=== PATIENT | female | born 1945 | race Caucasian/White ===

== ENCOUNTER 2019-01-04 19:31 | Inpatient (IN) | payer MEDICARE ==
[~2019-01-04] VITALS: Ht 152.4 cm; Wt 44.9 kg
[2019-01-04 19:31] VITALS: BP 130/53
--- NOTE | 2019-01-04 19:31 | NUR ---
Respiratory Therapist at bedside for respiratory intervention.
--- NOTE | 2019-01-04 19:31 | NUR ---
PT ANGELICA ALS. TAKEN TO BED 10
[2019-01-04] MEDS ORDERED: NACL 0.9% 1,000 ML IV ONE (19:32)
--- NOTE | 2019-01-04 19:40 | NUR ---
73 Y/O FEMALE BIBA C/O DIFFICULTY BREATHING. PT PRESENTS WITH ACCESSORY MUSCLE USE, DEEP,LABORED BREATHS, TRIPODDING. PT PLACED ON 3L NC. PT APPEARS FATIGUE. MUMBLING WHEN ASKED QUESTIONS. PT AROUSABLE TO NAME. AO TO NAME AND LOCATION. DIMINISHED BREATH SOUNDS THROUGHOUT. WET COUGH PRESENT AT THIS TIME. PT POSITIONED IN BED FOR COMFORT. PT PLACED ON MONITOR AND O2 SAT. VSS AT THIS TIME. MEDHX: COPD
--- NOTE | 2019-01-04 19:54 | NUR ---
PT PLACED ON BIPAP AT THIS TIME BY RESPIRATORY THERAPIST.
[2019-01-04 19:59] LABS: HEMATOCRIT 41.3 % (36-48); HEMOGLOBIN 13.6 g/dL (12.0-16.0); MEAN CORPUSCULAR HEMOGLOBIN 29 pg (27-31); MEAN CORPUSCULAR HGB CONC 33 g/dL (33-37); MEAN CORPUSCULAR VOLUME 88.4 fL (80-94); PLATELET COUNT (AUTO) 606 K/uL (140-450); RED BLOOD CELL COUNT(AUTO) 4.67 MIL/uL (4.20-5.40); RED CELL DISTRIBUTION WIDTH 13.3 % (11.6-13.7); WHITE BLOOD COUNT (AUTO) 18.1 K/uL (4.8-10.8)
[2019-01-04] MEDS ORDERED: methylPREDNISolone SS 125 MG in WATER STERILE 2 ML IV ONE (20:10)
--- NOTE | 2019-01-04 20:15 | NUR ---
PT PLACED ON BED JARRETT, URINE COLLECTED AT THIS TIME.
[2019-01-04 20:16] LABS: PROTHROMBIN TIME 9.8 secs (10.8-13.4)
[2019-01-04 20:26] LABS: BASOPHILS % (MANUAL) 0 % (0-2); EOSINOPHILS % (MANUAL) 0 % (0-4); LYMPHOCYTES % (MANUAL) 5 % (20-46); MONOCYTES % (MANUAL) 5 % (5-12)
[2019-01-04 20:39] LABS: APPEARANCE,URINE CLEAR (CLEAR); BILIRUBIN,URINE 1+ (NEGATIVE); BLOOD, URINE TRACE-I (NEGATIVE); COLOR,URINE YELLOW (YELLOW); LEUKOCYTE ESTERASE ,URINE NEGATIVE (NEGATIVE); NITRITE, URINE NEGATIVE (NEGATIVE); UGLUCOSE NEGATIVE (NEGATIVE)
[2019-01-04 20:44] LABS: CHLORIDE 100 mmol/L (98-107); POTASSIUM 4.1 mmol/L (3.5-5.1); SODIUM SERUM 144 mmol/L (136-145)
[2019-01-04 20:45] LABS: ALBUMIN 3.4 g/dL (3.4-5.0); ANION GAP 11.7 (8-16); ASPARTATE AMINOTRANSFERASE 30 U/L (15-37); CARBON DIOXIDE 36.4 mmol/L (21-32); CREATININE 0.7 mg/dL (0.6-1.3); GLUCOSE 200 mg/dL (74-106); LIPASE 59 U/L (73-393); TOTAL BILIRUBIN 0.6 mg/dL (0.0-1.0); UREA NITROGEN, BLOOD 34 mg/dL (7-18)
[2019-01-04] MEDS ORDERED: LEVOFLOXACIN 500 MG/D5W PREMIX 100 ML IV ONE (20:45)
[2019-01-04] MEDS ORDERED: ALBUTEROL SULFATE/IPRATROPIU 3 ML SOL IH ONE (20:55)
[2019-01-04 20:59] LABS: RBC,URINE NONE SEEN /HPF (0-5); WBC,URINE 0-5 /HPF (0-5)
--- NOTE | 2019-01-04 21:11 | NUR ---
PT AWAKE AND ALERT AT THIS TIME. PT APPEARS TO BE LESS LETHARGIC. RR EVEN, AND LESS LABORED. NO ACCESSORY MUSCLE USE. VSS. WILL CONTINUE TO MONITOR.
[2019-01-04 21:23] LABS: BARBITURATE, URINE NEGATIVE ng/ml (NEG <=200); BENZODIAZEPINE, URINE NEGATIVE ng/mL (NEG <=200); CANNABINOID, URINE NEGATIVE ng/mL (NEG <=50); COCAINE, URINE NEGATIVE ng/mL (NEG <=300); OPIATE, URINE NEGATIVE ng/mL (NEG <=2000); PHENCYCLIDINE SCREEN,URINE NEGATIVE ng/mL (NEG <=25)
--- NOTE | 2019-01-04 21:42 | NUR ---
RESPIRATORY AT BEDSIDE. PT AWAKE AND ALERT. VSS. WILL CONTINUE TO MONITOR.
--- NOTE | 2019-01-04 22:17 | NUR ---
POST ABG. INCREASED RR TO 16 AND 02 TO 40%
[2019-01-04] MEDS ORDERED: fentaNYL 0.05 MG/ML VIAL IVP ONE (22:50)
--- NOTE | 2019-01-04 22:53 | NUR ---
FLU SWAP COLLECTED AND TAKEN TO LAB
[2019-01-04 23:00] VITALS: BP 134/62
--- NOTE | 2019-01-04 23:00 | NUR ---
PT ARRIVED VIA GURNEY AND WAS TRANSFERRED TO ROOM 107A. LINDSAY NUNEZ ER NURSE GAVE REPORT AT BEDSIDE. PT AWAKE AND IN TRIPOD POSITION WITH BIPAP ON. FIO2 AT 40% PT RR 16 WITH BIPAP MASK ON. IV SITE 20G ON LEFT AC PLACED BY PARAMEDICS. SHE SKIN INTACT EXCEPT SOME MINOR [place] REDNESS. PT IS ALERT BUT HAS SOME CONFUSION. PER FAMILY PT RECENTLY LOST A LOT OF WEIGHT AND IS NON COMPLIANT WITH HOME MEDS. FAMILY TO ASSIST WITH MEDICAL HISTORY. PT DENIES PAIN AT THIS TIME.
--- NOTE | 2019-01-04 23:01 | NUR ---
PT SITTING IN BED POSITIONED FOR COMFORTABLE BREATHING. PT DENIES PAIN AT THIS TIME. REMAINS ON BIPAP. VSS.
[2019-01-04] MEDS: NACL 0.9% 1,000 ML IV SCH (23:06)
[2019-01-04] MEDS ORDERED: HYDROcodone/APAP 7.5/325 MG 1 TAB PO PRN (23:10)
[2019-01-04] MEDS ORDERED: DOCUSATE SODIUM 100 MG GELCAP PO PRN (23:10)
[2019-01-04] MEDS ORDERED: ACETAMINOPHEN 325 MG TAB PO PRN (23:10)
[2019-01-04] MEDS ORDERED: ONDANSETRON 4 MG/2 ML VIAL IM/IVP PRN (23:10)
[2019-01-04] MEDS ORDERED: MORPHINE SULFATE 2 MG/ML SYR IVP PRN (23:10)
[2019-01-04] MEDS ORDERED: FLUO10CA21 PO (23:22)
[2019-01-04] MEDS ORDERED: LISI30TA6 PO (23:22)
[2019-01-04] MEDS ORDERED: ATOR40TA PO (23:22)
[2019-01-04] MEDS ORDERED: AMLO5TAB PO (23:22)
[2019-01-04] MEDS ORDERED: ATEN50TA8 PO (23:22)
--- NOTE | 2019-01-04 23:48 | NUR ---
Patient will be admitted to care of DR TEAGUE. Admited to TELE. Will go to room 107A. Belongings list completed. Report to ENRIQUE ALBERTO.
--- NOTE | 2019-01-05 00:02 | NUR ---
PT TRANSFERRED FROM ER BED 10 TO RM 107A ON BIPAP 11/14,16,40%. PT WAS IN NO DISTRESS SAT 97%. BIPAP PLUGGED INTO RED OUTLET.
[2019-01-05] MEDS ORDERED: ALBUTEROL SULFATE/IPRATROPIU 3 ML SOL IH PRN (00:10)
[2019-01-05] MEDS ORDERED: DEXTROSE 50% 50 ML SYR IVP PRN (00:20)
[2019-01-05 02:21] LABS: MAGNESIUM 2.1 mg/dL (1.8-2.4); PHOSPHORUS 3.5 mg/dL (2.5-4.9); THYROID STIMULATING HORMONE 0.3 uIU/mL (0.34-3.74)
[2019-01-05 04:00] VITALS: BP 129/46
--- NOTE | 2019-01-05 04:00 | NUR ---
PT IN BED WITH BIPAP ON, SHE DENIES PAIN, IV SITE INTACT AND PT RUNNING N/S AT 100MLS/HR. V/S FOLLOWS T 97 P 80 R 18 B/P 129/46 02 98% ON BIPAP MACHINE. ALL FALLS PROTOCOL IN PLACE AT THIS TIME.
[2019-01-05] MEDS: ALBUTEROL SULFATE/IPRATROPIU 3 ML SOL IH SCH ×3 (06:28→19:34)
--- NOTE | 2019-01-05 06:28 | NUR ---
REC'D PT ON SHAILA V60 BIPAP SETTINGS 10/5 RR16 FIO2 40 % ALARM ON AND AUDIBLE AND AMBU BAG AT SIDE OF BIPAP AND BIPAP IS PLUGGED INTO RED OUTLET, I\L TX GIVEN WITH DUONEB 3ML WITH NO ADVERSE REACTION POST TX B\S ARE DIMINISHED BILATERALLY, PT IS SITTING UP IN BED AND PT IS WEARING MED FACE MASK.
[2019-01-05] MEDS: BLOOD GLUCOSE MONITORING 1 DEV DEV FS SCH ×4 (06:37→21:14)
[2019-01-05] MEDS: Z-GUARD PASTE TP SCH ×2 (06:38→20:24)
--- NOTE | 2019-01-05 06:38 | NUR ---
PER RT PLEASE DON'T TAKE MASK OF PT FRO BREAKFAST, PT DESTATS QUICKLY WHEN MASK IS OFF.
--- NOTE | 2019-01-05 06:39 | NUR ---
FINGERSTICK IS 177 NO COVERAGE GIVEN DUE TO PT NOT BEING ABLE TO EAT BREAKFAST (SHE DESTATS TOO QUICK WHEN MASK IS OFF PER RT)
[2019-01-05] MEDS ORDERED: methylPREDNISolone SS 40 MG/ML VIAL IVP SCH (07:00)
--- NOTE | 2019-01-05 07:10 | NUR ---
RECEIVED REPORT FROM NIGHT NURSE. PATIENT IS ALERT AND ORIENTED X4. ABLE TO MAKE NEEDS KNOWN. IV INTACT AND PATENT TO LEFT IJ WITH IVF NS INFUSING AT 100ML/HR. NO S/S OF DISTRESS NOTED. Addendum: 01/05/19 at 0812 by Lena Champagne RN DISREGARD NOTE ABOVE. ERROR. NOTE FOR A DIFFERENT PATIENT.
[2019-01-05 07:15] LABS: HEMATOCRIT 38.7 % (36-48); HEMOGLOBIN 12.4 g/dL (12.0-16.0); MEAN CORPUSCULAR HEMOGLOBIN 29 pg (27-31); MEAN CORPUSCULAR HGB CONC 32 g/dL (33-37); MEAN CORPUSCULAR VOLUME 89.4 fL (80-94); PLATELET COUNT (AUTO) 539 K/uL (140-450); RED BLOOD CELL COUNT(AUTO) 4.33 MIL/uL (4.20-5.40); RED CELL DISTRIBUTION WIDTH 13.6 % (11.6-13.7)
--- NOTE | 2019-01-05 07:30 | NUR ---
RECEIVED REPORT FROM NIGHT NURSE. PATIENT IS ON BIPAP MACHINE. O2 SAT AT 99%. AWAKE, VERBALLY RESPONSIVE AND SITTING UP IN A TRIPOD POSITION. IV INTACT AND PATENT TO LEFT AC WITH IVF NS INFUSING AT 100ML/HR. TOLERATING WELL. BED ALARM ON, BED IN LOW POSITION.
[2019-01-05 08:00] VITALS: BP 138/87
--- NOTE | 2019-01-05 08:00 | NUR ---
NOTIFIED DR. PIRES IN REGARDS TO PATIENT UNABLE TO EAT DUE TO BIPAP MASK REQUIRING TO STAY ON AT ALL TIMES. WILL REVIEW ORDERS.
--- NOTE | 2019-01-05 08:23 | NUR ---
PATIENT HAS BEEN SCREENED AND CATEGORIZED HIGH NUTRITION RISK. PATIENT WILL BE SEEN WITHIN 1-2 DAYS OF ADMISSION. 01/05/19-01/06/[address]
[2019-01-05 08:33] LABS: PHOSPHORUS 3.1 mg/dL (2.5-4.9)
--- NOTE | 2019-01-05 08:47 | NUR ---
ABG ATTEMPTED TWICE PT IS COMBATIVE AND TRYING TO GET OUT OF BED ENRIQUE CRANE NOTIFIED
[2019-01-05 08:51] LABS: EOSINOPHILS % (MANUAL) 1 % (0-4); LYMPHOCYTES % (MANUAL) 8 % (20-46); MONOCYTES % (MANUAL) 9 % (5-12)
--- NOTE | 2019-01-05 09:00 | NUR ---
PATIENT IS SITTING IN A TRIPOD POSITION WITH BIPAP MASK ON, OBSERVED IV CANNULA PULLED OUT. NO IV ACCESS AT THIS TIME. WILL RE INSERT IV.
[2019-01-05] MEDS: LACTOBACILLUS RHAMNOSUS GG 1 EACH CAP PO SCH (09:04)
[2019-01-05] MEDS: FLUoxetine 10 MG CAP PO SCH (09:05)
[2019-01-05] MEDS: ATENOLOL 50 MG TAB PO SCH (09:05)
[2019-01-05] MEDS: LISINOPRIL 20 MG TAB PO SCH (09:05)
[2019-01-05] MEDS: amLODIPine 5 MG TAB PO SCH (09:06)
[2019-01-05] MEDS: NACL 0.9% 1,000 ML IV SCH (09:06)
--- NOTE | 2019-01-05 09:25 | NUR ---
DC PLANNING: CONTACTED [place] AT [phone], ABLE TO SPEAK TO [employer] SALES REPRESENTATIVE. SHE STATED THE JUNIOR STAFF ACCOUNTANT IN CHARGE IS [employer]OL AND JOEL IS THE TRAIN ATTENDANT. SHE PROVIDED ME JOEL'S PHONE NUMBER [phone] BEFORE TRANSFERRING ME. SPOKE TO JOEL, SHE STATED TO GO AHEAD AND FAX [phone] OVER CLINICALS AND PROGRESS NOTES FOR TODAY'S STAY. WRINGER AND SETTER LILA MADE AWARE. Addendum: 01/05/19 at 1532 by Jessica Ellison 73 YO FEMALE PATIENT FROM HOME, WHO CAME IN DUE TO SOB. PST MEDICAL HISTORY INCLUDE COPD, HTN, DIABETES, ANXIETY AND DEPRESSION. INITIAL DIAGNOSIS OF COPD EXACERBATION. WBC ON ADMISSION 18.1, TODAY 15.0. ON LEVOFLOXACIN AND SOLU MEDROL IV. BLOOD AND URINE CULTURES ARE STILL PENDING. CXR SHOWED HYPEREXPANDED LUNGS WHICH COULD REFELECT UNDERLYING OBSTRUCTIVE LUNG DISEASE. MILD VASCULAR CONGESTION. PULMO CONSULT WITH KANE FOR COPD. PO2 59.4 ON ABG. ON BIPAP 40% FIO2, O2 SAT 95%. DC PLAN PENDING ON PATIENT'S RESPONSE TO TREATMENT. Addendum: 01/06/19 at 0832 by Jessica Ellison CM CONTACTED [facility], ABLE TO SPEAK TO KELL MORAN. INFORMED HER THAT THE PATIENT IS NOW STABLE FOR TRANSFER. CONFIRMED THE FAX NUMBER [phone] TO SEND CLINICALS. Addendum: 01/06/19 at 0839 by Jessica Ellison CM CLINICALS FAXED TO THE PROVIDED NUMBER. [facility] WILL FOLLOW UP. Addendum: 01/06/19 at 1502 by Jessica Ellison CM RECEIVED A TRANSFER CHECK OFF LIST FROM [place]. CONTACTED [facility] TRANSFER TRAIN ATTENDANT AT [phone], PROVIDED HIM WITH UPDATE THAT PATIENT IS STABLE FOR TRANSFER SINCE THIS MORNING. HE STATED HE IS WAITING FOR BED AT THIS TIME. PROVIDED HIM WITH MY CONTACT INFO AND UNIT'S PHONE NUMBER WELL. I ALSO REQUESTED FOR CHIDI CM'S PHONE NUMBER AND HE STATED HE CAN HELP ME IF I HAVE ANY QUESTIONS. I TOLD HIM THAT I WILL PROVIDE UPDATE FOR THIS PATIENT, HE STATED I DON'T HAVE TO. Addendum: 01/06/19 at 1604 by Jessica Ellison CM POST STABILIZATION FORM FAXED.
--- NOTE | 2019-01-05 10:00 | NUR ---
IV REINSERTED TO RIGHT FOREARM WITH 22G. IVF RESTARTED WITH NS @ 100ML/HR.
[2019-01-05 10:43] LABS: ANION GAP 7.2 (8-16); CARBON DIOXIDE 37.9 mmol/L (21-32); CHLORIDE 105 mmol/L (98-107); GLUCOSE 194 mg/dL (74-106); POTASSIUM 4.1 mmol/L (3.5-5.1); SODIUM SERUM 146 mmol/L (136-145)
[2019-01-05 10:44] LABS: CREATININE 0.6 mg/dL (0.6-1.3); UREA NITROGEN, BLOOD 27 mg/dL (7-18)
[2019-01-05] MEDS: DEXT 5% /NACL 0.9% 1,000 ML IV SCH ×2 (11:39→21:44)
--- NOTE | 2019-01-05 11:40 | NUR ---
D5 NS IVF STARTED VIA PERIPHERAL IV TO RIGHT FOREARM ORDERED. PT UNABLE TO TOLERATE DIET DUE TO SOB AND BIPAP MASK NEEDS TO BE PLACED AT ALL TIMES TO PREVENT DECREASED OXYGENATION. WILL CONTINUE TO MONITOR.
--- NOTE | 2019-01-05 11:45 | NUR ---
ABG ATTEMPTED SEVERAL TIMES PT KEEPS MOVING PULLING AWAY, ENRIQUE CRANE AND DR. ESTRADA NOTIFIED
--- NOTE | 2019-01-05 11:50 | NUR ---
BLOOD SUGAR 188, HUMALOG COVERAGE WITH HELD DUE TO PATIENT UNABLE TO EAT AT THIS TIME. PER RT PATIENT WILL DESAT ONCE BIPAP MASK IS REMOVED.
[2019-01-05 12:00] VITALS: BP 129/48
--- NOTE | 2019-01-05 12:57 | NUR ---
PATIENT IS AWAKE, ALERT AND VERBALLY RESPONSIVE. O2 SAT 99% WITH BIPAP MASK ON. IV INTACT AND PATENT TO RFA WITH D5 NS 100ML/HR. TOLERATING WELL. WILL CONTINUE TO MONITOR.
[2019-01-05] MEDS: methylPREDNISolone SS 40 MG/ML VIAL IVP SCH ×2 (13:30→21:13)
--- NOTE | 2019-01-05 13:41 | NUR ---
ABG DRAWN ON RB WITHOUT INCIDENT AND RESULTS GIVEN TO AND DECREASED FIO2 TO 30%
--- NOTE | 2019-01-05 14:29 | NUR ---
01/05/19 RD INITIAL ASSESSMENT COMPLETED PLEASE REFER TO NUTRITION ASSESSMENT UNDER CARE ACTIVITY FOR ESTIMATED NUTRITIONAL NEEDS. 1. CONTINUE 60G CCHO DIET TOLERATED 2. IF PATIENT CONTINUES TO NOT TOLERATE CCHO DIET, CONSIDER ENTERAL NUTRITION 3. RD TO FOLLOW-UP 2-3 DAYS, HIGH RISK [address]EN [address]ENDA[address] RD
--- NOTE | 2019-01-05 14:30 | NUR ---
PER DR. ESTRADA PATIENT'S BIPAP MASK BE REMOVED DURING DINNER AND PLACED BACK ON AT BEDTIME. WILL CONTINUE TO MONITOR.
--- NOTE | 2019-01-05 15:15 | NUR ---
NO S/S OF DISTRESS NOTED. PATIENT IS STILL WITH BIPAP MASK ON. O2 SAT @ 96%. DAUGHTERS AT BEDSIDE. CALL LIGHT WITHIN REACH.
[2019-01-05 16:00] VITALS: BP 135/66
[2019-01-05] MEDS: INSULIN LISPRO SLIDING SCALE 100 UNITS/ML VIAL SUBQ PRN ×2 (17:23→21:19)
--- NOTE | 2019-01-05 17:36 | NUR ---
PATIENT IS STILL WITH BIPAP MASK ON. O2 SAT @ 96%. PATIENT IS ALERT AND VERBALLY RESPONSIVE, SITTING ON THE SIDE OF THE BED. FAMILY AT BEDSIDE. CALL LIGHT WITHIN REACH.
--- NOTE | 2019-01-05 18:13 | NUR ---
BIPAP MASK OFF, O2 NC PLACED WITH 02 3L. O2 SATURATION @ 94-97%. PATIENT IS SITTING UP ON THE SIDE OF THE BED, EATING DINNER NOW. DR. ESTRADA AND FAMILY AT BEDSIDE.
--- NOTE | 2019-01-05 19:13 | NUR ---
PT IN STABLE CONDITION. WILL ENDORSE TO NIGHT NURSE FOR CONTINUITY OF CARE.
--- NOTE | 2019-01-05 19:20 | NUR ---
RECEIVED REPORT FROM AM RN IN BED SITTING UP WITH RESPIRATORY THERAPIST DRAWING ABG SPECIMEN. FAMILY MEMBERS AROUND VISITING. PT. ABLE TO VERBALIZE NEEDS WELL. NO COMPLAINTS DONE AT THIS TIME. DENIES PAIN. TELEMETRY MONITORING. CALL LIGHT WITH IN REACH AND CARE PLANS FOR THE NIGHT DISCUSSED WITH HER. DX. OF COPD EXACERBATION.
--- NOTE | 2019-01-05 19:38 | NUR ---
* ST NOTE * Pt seen at bedside w/nsg and family/friend visitors present. Pt consenting to evaluation w/visitors present. Pt alert, cooperative and engaged throughout session, reporting no c/o pain at this time. Pt also tolerating 02 at 3 LPM continuous via NC well, maintaining 02 saturation at or above 96% throughout course of session. Bedside dysphagia and oral mechanism exams completed. See evaluation report for further details. Pt tolerating 5/5 alternating PO trials of regular solid meat loaf dinner meal and peaches, as well as 4/4 alternating PO trials of thin liquid diet coke as provided by visitors via a straw, all w/o s/s of aspiration or choking. Pt, caregivers/nsg Glaiza and caregivers/family/visitors education completed re: aspiration precautions and safe swallow compensatory strategies pt and caregivers could utilize to aid pt w/swallow function, w/pt, caregiver/Nsg Glaiza and caregivers/visitors verbalizing understanding and agreement w/clinician's recommendations. Pt also providing food preferences, w/clinician informing pt clinician will endorse pt's requests to FNS. It is thus recommended pt's Po diet consistency remain as regular solids w/thin liquids for all meals, w/aspiration precautions in place. No further skilled MEDICAL ASSISTANT INTERNAL MEDICINE services recommended at this time. Pt, caregiver/Nsg Glaiza and caregivers/family education completed re: results of evaluation; benefits of abiding by aspiration precautions and recommended PO diet consistency; and prognosis for improvement; with pt, caregiver/Nsg Glaiza, and caregivers/family verbalizing understanding and agreement w/clinician's recommendations. Recommend: - PO DIET CONSISTENCY OF REGULAR SOLIDS W/THIN LIQUIDS for all meals - MAINTAIN STRICT ASPIRATION PRECAUTIONS IN PLACE DURING PT'S PO INTAKE - Pt requires minimal assistance w/feeding, or may require setup assistance w/tray - Nsg to CUE/REMIND PT TO SIT UP AT 80-90 DEGREE ANGLE DURING PO INTAKE; EAT/DRINK SLOWLY; ALTERNATE BTWN SOLIDS & LIQUIDS; AND TAKE SMALL BITES/SIPS - FNS/DIETARY SERVICES--PT REQUESTING FOOD PREFERENCES FOR LUNCH AND/OR DINNER WHEN AVAILABLE: GRILLED CHEESE SANDWICHES, ESQUIVEL & MOTLEY SOUP, AND SPINACH No further ST follow up recommended at this time. NOMS Level 2 Time In/Out 18:45 - 19:15
[2019-01-05 20:16] VITALS: BP 136/72
[2019-01-05] MEDS: ATORVASTATIN 20 MG TAB PO SCH (20:23)
--- NOTE | 2019-01-05 22:01 | NUR ---
MEMDICATIONS ADMINISTERED EXPLAINED NEED OF IT , SIDE EFFECTS TO SISTER IN LAW AND PT. PT. WAS PLACED ON BIPAP EARLIER BY RESPIRATORY THERAPIST AND NOW PT. HAD IT STOPPED RT SHE SAID SHE WANTS TO EAT SANDWICH. PROVIDED WITH TUNA SANDWICH REQUESTED. PLACED ON 02 AT THIS TIME BY RESPIRATORY THERAPIST. CALL LIGHT WITH IN REACH. TELEMETRY MONITORING.
[2019-01-06 00:02] VITALS: BP 104/47
--- NOTE | 2019-01-06 00:06 | NUR ---
PT. SLEEPING WHEN VISITORS LEFT. WOKE UP EASILY WHEN VITAL SIGNS TAKEN. FED WITH TUNA SANDWICH AT THIS TIME RT FORGOT TO EAT REQUESTED SANDWICH EARLIER. ABLE TO DRINK APPLE JUICE. ABLE TO VERBALIZE NEEDS WELL. PROVIDED WITH CALL LIGHT . ENCOURAGED TO CALL FOR ANY HELP SHE MAY NEED OR IF IN PAIN. "I WILL" BED ALARM ON. PT. AT THIS TIME ON 02 PER NASAL CANNULA WITH 02 SAT OF 95 -97 % .
--- NOTE | 2019-01-06 02:28 | NUR ---
PT. SLEEPING WELL. NO RESTLESSNESS. CALL LIGHT WITH IN REACH. STILL ON 02 PER N/C.
[2019-01-06 04:00] VITALS: BP 133/53
--- NOTE | 2019-01-06 04:19 | NUR ---
PT. VITAL SIGNS TAKEN. AWAKE FOR A WHILE. STATED SHE CAN NOT BREATH WELL. RESPIRATORY THERAPIST CALLED AND BREATHING TREATMENT PROVIDED REQUESTED. PT. DENIES PAIN. 02 SAT AVERAGING 89 - 95 % WITH 02 AT 3LPM/NC. STILL COUGHING INTERMITTENTLY. NON PRODUCTIVE. AFEBRILE. ABLE TO VERBALIZE NEEDS WELL IN THAI. CALL LIGHT WITH IN REACH AT ALL TIMES AND PT. ABLE TO USE IT FOR HELP AND NEEDS.
[2019-01-06] MEDS: methylPREDNISolone SS 40 MG/ML VIAL IVP SCH ×3 (04:51→21:15)
[2019-01-06] MEDS: BLOOD GLUCOSE MONITORING 1 DEV DEV FS SCH ×4 (04:59→21:15)
[2019-01-06] MEDS: INSULIN LISPRO SLIDING SCALE 100 UNITS/ML VIAL SUBQ PRN ×4 (05:02→21:17)
--- NOTE | 2019-01-06 05:07 | NUR ---
BLOOD SUGAR PER FINGERSTICK IS 262 . WILL COVER WITH HUMALOG INSULIN ORDERED. PT. ABLE TO VERBALIZE NEEDS WELL. PT. AT TIMES HAVE CONFUSION / FORGETFULNESS. PT. TENDENCY TO FORGET INCIDENT AND THINKS IT NEVER HAPPENED AND REPEATS ASKING ABOUT IT. NEED TO BE REMINDED THAT SHE HAD HER MEDICATIONS AND BREATHING TREATMENTS. KEEPS TAKING OUT HER ADULT PULSE 02 SAT OXIMETER TAPED TO HER FINGER AND SAYS "I FORGOT" REMINDED ALL THE TIME RE: IMPORTANCE OF IT.
--- NOTE | 2019-01-06 05:58 | NUR ---
PT. WENT BACK TO SLEEP AFTER MANAGER MEDICARE TOOK BLOOD SAMPLES FROM HER. NO COMPLAINTS DONE. TELEMETRY MONITORING. NO SOB. "I FEEL MUCH BETTER" GOOD AFFECT. ABLE TO SMILE NOW RATHER THAN LAST NIGHT. AFEBRILE. PT. DID NOT USE BIPAP MOST OF NIGHT. RESPIRATORY THERAPIST CHECKING ON PT. MOST OF TIMES. REMINDED PT. THAT WE ARE HERE AND NEAR TO HELP HER. NOTED WITH EPISODES OF ANXIETY WHEN LEFT AFTER CARE.
[2019-01-06 07:05] LABS: HEMATOCRIT 34.9 % (36-48); HEMOGLOBIN 11.2 g/dL (12.0-16.0); MEAN CORPUSCULAR HEMOGLOBIN 29 pg (27-31); MEAN CORPUSCULAR HGB CONC 32 g/dL (33-37); MEAN CORPUSCULAR VOLUME 88.7 fL (80-94); PLATELET COUNT (AUTO) 484 K/uL (140-450); RED BLOOD CELL COUNT(AUTO) 3.93 MIL/uL (4.20-5.40); RED CELL DISTRIBUTION WIDTH 13.5 % (11.6-13.7); WHITE BLOOD COUNT (AUTO) 16.5 K/uL (4.8-10.8)
[2019-01-06 07:11] LABS: ANION GAP 7.1 (8-16); CARBON DIOXIDE 36.4 mmol/L (21-32); CHLORIDE 104 mmol/L (98-107); CREATININE 0.6 mg/dL (0.6-1.3); GLUCOSE 287 mg/dL (74-106); POTASSIUM 3.5 mmol/L (3.5-5.1); SODIUM SERUM 144 mmol/L (136-145); UREA NITROGEN, BLOOD 15 mg/dL (7-18)
--- NOTE | 2019-01-06 07:30 | NUR ---
RECEIVED REPORT FROM NIGHT NURSE. PATIENT IS IN BED WITH HOB ELEVATED, AWAKE, ALERT AND VERBALLY RESPONSIVE. ABLE TO MAKE NEEDS KNOWN. PT ON O2 NC @2L, O2 SAT NOTED @ 91-92%. DENIES ANY SOB OR DISCOMFORT AT THIS TIME. IV INTACT AND PATENT TO RFA WITH IVF D5NS INFUSING @ 100ML/HR. TOLERATING WELL. CALL LIGHT WITHIN REACH.
[2019-01-06 07:57] LABS: MAGNESIUM 1.8 mg/dL (1.8-2.4)
[2019-01-06] MEDS: ALBUTEROL SULFATE/IPRATROPIU 3 ML SOL IH SCH ×3 (07:58→19:48)
[2019-01-06 08:00] VITALS: BP 122/54
[2019-01-06 08:13] LABS: LYMPHOCYTES % (MANUAL) 8 % (20-46); MONOCYTES % (MANUAL) 5 % (5-12)
[2019-01-06] MEDS: FLUoxetine 10 MG CAP PO SCH (08:42)
[2019-01-06] MEDS: LISINOPRIL 20 MG TAB PO SCH (08:42)
[2019-01-06] MEDS: amLODIPine 5 MG TAB PO SCH (08:43)
[2019-01-06] MEDS: DEXT 5% /NACL 0.9% 1,000 ML IV SCH (08:43)
[2019-01-06] MEDS: LACTOBACILLUS RHAMNOSUS GG 1 EACH CAP PO SCH (08:44)
[2019-01-06] MEDS: ATENOLOL 50 MG TAB PO SCH (08:55)
[2019-01-06] MEDS: Z-GUARD PASTE TP SCH ×2 (08:56→19:30)
[2019-01-06] MEDS ORDERED: NICOTINE TRANSD SYS 21 MG/24 HR PATCH TD SCH (09:00)
[2019-01-06] MEDS ORDERED: LACT10CA PO (09:23)
[2019-01-06] MEDS ORDERED: ACET-1182 PO (09:23)
[2019-01-06] MEDS ORDERED: HEPA500056 SUBQ (09:23)
[2019-01-06] MEDS ORDERED: ACET-9529 PO (09:23)
[2019-01-06] MEDS ORDERED: levaquin IV (09:23)
[2019-01-06] MEDS ORDERED: NICO-532 TD (09:23)
[2019-01-06] MEDS ORDERED: MORP2SOL18 IVP (09:23)
[2019-01-06] MEDS ORDERED: METH40PD15 IVP (09:23)
[2019-01-06] MEDS ORDERED: ALBU3SOL83 IH ×2 (09:23)
[2019-01-06] MEDS ORDERED: HUMSLIDE SUBQ (09:23)
[2019-01-06] MEDS ORDERED: D50SYR IVP (09:23)
[2019-01-06] MEDS ORDERED: DOCU-299 PO (09:23)
[2019-01-06] MEDS ORDERED: GLUC-805 FS (09:23)
[2019-01-06] MEDS ORDERED: ZGUARD TP (09:23)
[2019-01-06] MEDS ORDERED: ONDA2SOL45 IM/IVP (09:23)
--- NOTE | 2019-01-06 10:30 | NUR ---
[facility] CALLED IN FOR REPORT. REPORT GIVEN IN REGARDS TO PATIENT'S CONDITION. PER ELIEL THEY WILL GIVE CALL BACK IN REGARDS TO TRANSPORT TIME AND ROOM NUMBER.
--- NOTE | 2019-01-06 10:40 | NUR ---
PT C/O SOB WITH O2 NC ON @ 3L. O2 SAT 88-89%. RT NOTIFIED FOR BIPAP PLACEMENT.
--- NOTE | 2019-01-06 10:45 | NUR ---
CALLED FOR PT THAT PT IS SOB PLACED PT ON BIPAP PT'S SPO2 WAS 90%. PLACED ON BIPAP 10/5,14,50%. PT IS MORE COMFORTABLE. SPO2 INCREASED TO 96%. WILL CONTINUE TO MONITOR.
--- NOTE | 2019-01-06 11:30 | NUR ---
PT ON BIPAP MASK, WITH RT PROTOCOL SETTINGS. PATIENT IS COMFORTABLE WITH BIPAP MASK ON, O2 SAT @ 98-100%.
[2019-01-06 12:00] VITALS: BP 115/42
--- NOTE | 2019-01-06 13:00 | NUR ---
PT IS EATING LUNCH, O2 CANNULA @ 3L PLACED, O2 SAT NOTED AT 92%. PT ALERT AND VERBALLY RESPONSIVE. ABLE TO MAKE NEEDS KNOWN. DENIES SOB AT THIS TIME. WILL CONTINUE TO MONITOR.
--- NOTE | 2019-01-06 13:07 | NUR ---
PT TOLERATING WELL. GAVE HHN TX WITH NO ADVERSE REACTION. DECREASED FIO2 TO 40%. NO DISTRESS NOTED. WILL CONTINUE TO MONITOR
--- NOTE | 2019-01-06 13:30 | NUR ---
PATIENT REFUSED TO PLACE BIPAP MASK. BIPAP MASK REMOVED, O2 NC PLACE @3L. PATIENT REQUESTED TO EAT LUNCH. O2 SAT 90-91, TOLERATING WELL, DENIES SOB.
--- NOTE | 2019-01-06 14:00 | NUR ---
DR. ESTRADA AT BEDSIDE. GRAND DAUGHTER AT BEDSIDE. PATIENT AWAITING FOR TRANSFER TO [facility].
--- NOTE | 2019-01-06 14:51 | NUR ---
BIPAP REMOVED BY RN PATIENT REQUESTED. MD ESTRADA AT BEDSIDE WELL GRAND DAUGHTER. PT ON 3 L NC. ORDERED BLOOD GAS. BLOOD GAS DRAWN WITH NO INCIDENT. RESULTS GIVEN TO MD ESTRADA. WILL CONTINUE TO MONITOR.
[2019-01-06 16:00] VITALS: BP 121/54
--- NOTE | 2019-01-06 16:30 | NUR ---
FAMILY AT BEDSIDE. DENIES PAIN AT THIS TIME. PT ALERT AND ORIENTED. O2 CANNULA @3L IN PLACE. O2 SAT 92%. PATIENT DENIES FEELING SOB AT THIS TIME. CALL LIGHT WITH IN REACH.
--- NOTE | 2019-01-06 18:00 | NUR ---
PATIENT IS STILL AWAITING FOR TRANSFER TO [facility]. PATIENT IS ALERT AND VERBALLY RESPONSIVE. PT ABLE TO TOLERATE DINNER WITH NO DISTRESS NOTED.
--- NOTE | 2019-01-06 19:17 | NUR ---
NOTED LARGE BRUISING TO RIGHT AC. SKIN INTACT. DENIES PAIN AT THE SITE. PATIENT IS IN STABLE CONDITION. WILL ENDORSE TO NIGHT NURSE.
--- NOTE | 2019-01-06 19:30 | NUR ---
NOTIFIED RESIDENT DOCTOR UNDER DR. TEAGUE IN REGARDS TO LARGE BRUISING TO RIGHT AC AREA NOTED. TO SEE PT.
--- NOTE | 2019-01-06 19:35 | NUR ---
PT. RECEIVED FROM AM RN AWAKE AND ALERT. DAUGHTER AT BEDSIDE. NO SOB. GOOD AFFECT. WAITING TRANSFER TO [facility] SOON BED AVAILABLE PER AM RN.
--- NOTE | 2019-01-06 20:20 | NUR ---
RECEIVED TRANSPORT TIME BY [employer], ROOM NUMBER AND MD RECEIVING AT [facility] FROM [facility]. REPORT GIVEN TO RN/ALTA AT 4TH FLOOR IN [place] RECEIVING PT.
--- NOTE | 2019-01-06 20:30 | NUR ---
DISCHARGE INSTRUCTIONS GIVEN TO PT. AND DAUGHTER. ALL DISCHARGE PAPER WORKS SIGNED BY DAUGHTER FOR MOTHER. NO COMPLAINTS DONE.
[2019-01-06] MEDS: ATORVASTATIN 20 MG TAB PO SCH (21:16)
--- NOTE | 2019-01-06 21:29 | NUR ---
HEPARIN SQ MEDICATION NOT ADMINISTERED PER ORDER FROM RESIDENT MD OROURKE . PT. AWARE. DAUGHTER AWARE TALKED TO BY RESIDENT EARLIER ON THE SHIFT . WAITING FOR TRANSP[place] [facility] [place] ALL MEDICATIONS FOR 2100 ADMINISTERED EXCEPT HEPARIN SQ.
[2019-01-06] MEDS ORDERED: LEVOFLOXACIN 750 MG/D5W PREMIX 150 ML IV SCH (22:00)
--- NOTE | 2019-01-06 22:11 | NUR ---
[facility] IN HERE TO IMPLEMENTATION SPECIALIST PAYROLL PT. REPORT GIVEN TO THEM . ALL DISCHARGE PAPER WORKS HANDED TO THEM TOO.
== END 2019-01-06 22:20 | disposition short-term general hospital (02) | DRG 871 ==
LOC: MED 19:31 → MTU 23:08
PROVIDERS: ADMIT General Practice; ATTEND General Practice
PROC: 5A09357 Assistance with Respiratory Ventilation, Less than 24 Consecutive Hours, Continuous Positive Airway Pressure (ICD-10-PCS; principal; 2019-01-04)
DX: A41.9 Sepsis, unspecified organism (principal); J96.21 Acute and chronic respiratory failure with hypoxia; J96.22 Acute and chronic respiratory failure with hypercapnia; J44.1 Chronic obstructive pulmonary disease with (acute) exacerbation; J44.0 Chronic obstructive pulmonary disease with (acute) lower respiratory infection; D68.59 Other primary thrombophilia; F41.9 Anxiety disorder, unspecified; F32.9 Major depressive disorder, single episode, unspecified; I11.0 Hypertensive heart disease with heart failure; F17.200 Nicotine dependence, unspecified, uncomplicated; R65.20 Severe sepsis without septic shock; E78.5 Hyperlipidemia, unspecified; D47.3 Essential (hemorrhagic) thrombocythemia; J20.9 Acute bronchitis, unspecified; I50.9 Heart failure, unspecified; Z79.899 Other long term (current) drug therapy; Z90.710 Acquired absence of both cervix and uterus; Z98.82 Breast implant status; Z80.1 Family history of malignant neoplasm of trachea, bronchus and lung; Z91.19 Patient's noncompliance with other medical treatment and regimen; Z99.81 Dependence on supplemental oxygen
CPT/HCPCS: 36415; 36600; 71045; 80048; 80053; 80305; 81001; 82803; 82948; 83036; 83605; 83690; 83735; 83880; 84100; 84439; 84443; 84484; 85025; 85610; 87040; 87081; 87086; 87804; 92610; 93005; 94640; 94660; 96361; 96365; 96375; 99291; G0482; J1644; J1815; J1956; J2920; J2930; J3010; J7030; J7042; J7620; Q0092